=== PATIENT | female | born 1960 | race Caucasian/White ===

== ENCOUNTER 2018-08-19 14:57 | Emergency (ER) | payer OTHER ==
[2018-08-19 15:10] VITALS: BP 122/80
[2018-08-19] MEDS ORDERED: Sodium Chloride 0.9% 10 ML Syringe FLUSH PRN (15:43)
[2018-08-19] MEDS ORDERED: LORazepam 2 MG/ML SDV IVPUSH ONE ×2 (15:43→16:27)
[2018-08-19] MEDS ORDERED: Sodium Chloride 0.9% 1,000 ML IV SCH (15:45)
--- NOTE | 2018-08-19 16:01 | EDM.PDOCBH ---
ED HPI GENERAL MEDICAL PROBLEM - General Chief Complaint: Behavioral/Psych Stated Complaint: SHORT OF BREATH Time Seen by Provider: 08/19/18 15:52 Source of Information: Reports: Patient History Limitations: Reports: No Limitations - History of Present Illness INITIAL COMMENTS - FREE TEXT/NARRATIVE: Patient is a 58-year-old female who states for the past 3 weeks has been modifying her home prescription medications. Patient has a history of anxiety, depression, and chronic back pain. Patient per PCP guidance discontinued Lexapro and started on the patient on Zoloft 50 mg 3 weeks ago. In addition she' s been tapering herself off of the Valium she's been taking for the past 10 years. She's been off of it for the past week. She's been experiencing increased anxiety, agitation, tremors, palpitations, and intermittent sweating since starting the Zoloft. She believes it is related to stopping the Lexapro. She's been in contact with a family member who is a PA and recommended evaluation for serotonin syndrome. I suspect patient is having a panic attack. Patient has missed a dose of the Zoloft yesterday but is taking one third tab daily. She is wanting to taper off this medication as well. Generalized Pain Score (Numeric/FACES): 9 - Related Data Allergies Allergy/AdvReac Type Severity Reaction Status Date / Time amoxicillin Allergy Hives Verified 08/19/18 15:15 ampicillin Allergy Hives Verified 08/19/18 15:15 Influenza Virus Vaccines Allergy Paralysis Verified 08/19/18 15:15 latex Allergy Rash Verified 08/19/18 15:15 Penicillins Allergy Hives Verified 08/19/18 15:15 Zwxrixk-Ctz-Bfh Reductase Allergy Muscle Verified 08/19/18 15:15 Inhibitor Aches Sulfa (Sulfonamide Allergy Rash Verified 08/19/18 15:15 Antibiotics) Home Meds: Home Meds Aspirin [Ecotrin] 81 mg PO DAILY 08/19/18 [History] Calcium Carbonate/Vitamin D3 [Calcium 600 + Vit D 200] 1 tab PO DAILY 08/19/18 [ History] Hydrocodone/Acetaminophen [Hydrocodon-Acetaminophn 10-325] 1 tab PO DAILY [History] LORazepam [Ativan] 1 mg PO BID PRN #6 tablet 08/19/18 [Rx] Multivitamin [Multi-Day Vitamins] 1 tab PO DAILY 08/19/18 [History] Omeprazole Magnesium [Prilosec Otc] 40 mg PO DAILY 08/19/18 [History] Ondansetron [Zofran ODT] 4 mg PO Q6H PRN #8 tab.dis 08/19/18 [Rx] Rosuvastatin [Crestor] 10 mg PO DAILY 08/19/18 [History] Past Medical History Other HEENT History: retinal tear 2017 INTERLACER History: Reports: - Past Surgical History Cardiovascular Surgical History: Reports: Coronary Artery Bypass Social & Family History - Tobacco Use Smoking Status *Q: Current Some Day Smoker Years of Tobacco use: 10 Packs/Tins Daily: 0.2 - Caffeine Use Caffeine Use: Reports: None - Recreational Drug Use Recreational Drug Use: No ED ROS GENERAL - Review of Systems Review Of Systems: See Below Constitutional: Reports: Malaise, Fatigue, Decreased Appetite. Denies: Fever HEENT: Reports: No Symptoms Respiratory: Reports: No Symptoms Cardiovascular: Reports: No Symptoms GI/Abdominal: Reports: Decreased Appetite, Nausea. Denies: Abdominal Pain, Vomiting : Reports: No Symptoms Musculoskeletal: Reports: Muscle Pain Skin: Reports: No Symptoms Neurological: Reports: Dizziness, Tremors. Denies: Headache, Syncope, Trouble Speaking, Difficulty Walking, Change in Speech Psychiatric: Reports: Agitation, Anxiety. Denies: Cravings, Depression, Hallucinations, Homicidal Ideation, Mood Lability, Suicidal Ideation ED EXAM, BEHAVIORAL HEALTH - Physical Exam Exam: See Below Exam Limited By: No Limitations General Appearance: Alert, WD/WN, Anxious Eye Exam: Bilateral Eye: EOMI, Nystagmus (none noted), PERRL, Vision Changes ( blurred vision) Ears: Normal External Exam, Normal Canal, Hearing Grossly Normal, Normal TMs Nose: Normal Inspection Throat/Mouth: Normal Inspection, Normal Voice, No Airway Compromise, Other (dry mouth) Head: Atraumatic, Normocephalic Neck: Normal Inspection, Supple, Non-Tender, Full Range of Motion Respiratory/Chest: No Respiratory Distress, Lungs Clear, Normal Breath Sounds, No Accessory Muscle Use, Chest Non-Tender Cardiovascular: Normal Peripheral Pulses, Regular Rate, Rhythm, No Murmur GI/Abdominal: Normal Bowel Sounds, Soft, Non-Tender, No Organomegaly, No Distention Back Exam: Normal Inspection. No: CVA Tenderness (L), CVA Tenderness (R) Extremities: Normal Inspection, Normal Range of Motion, Non-Tender, No Pedal Edema, Normal Capillary Refill Neurological: Alert, CN II-XII Intact, Normal Gait, No Motor/Sensory Deficits, Oriented x 3, Other (hyperreflexia with no induced clonus. No facial droop, slurred speech, tongue deviation. No weakness discrepancy as to the upper extremities.). No: Normal Reflexes Psychiatric: Alert, Restless, Tearful, Other (anxious) Skin Exam: Warm, Dry, Intact, Normal color COURSE, BEHAVIORAL HEALTH COMP - Course Vital Signs: Last Vital Signs Temp 97.4 F 08/19/18 15:02 Pulse 94 08/19/18 15:02 Resp 14 08/19/18 15:02 BP 122/80 08/19/18 15:02 Pulse Ox 100 08/19/18 15:02 Orders, Labs, Meds: Active Orders 24 hr Category Date Time Status EKG 12 Lead [EKG Documentation Completion] [RC] STAT Care 08/19/18 15:42 Active Peripheral IV Care [RC] . DIRECTED Care 08/19/18 15:43 Active Peripheral IV Insertion Adult [OM.PC] Routine Oth 08/19/18 15:43 Ordered Laboratory Tests 08/19/18 08/19/18 08/19/18 Range/Units 15:15 15:55 15:55 WBC 7.04 (3.98-10.04) K/mm3 RBC 5.32 H (3.98-5.22) M/mm3 Hgb 15.1 (11.2-15.7) gm/L Hct 45.0 H (34.1-44.9) % MCV 84.6 (79.4-94.8) fl MCH 28.4 (25.6-32.2) pg MCHC 33.6 (32.2-35.5) g/dl RDW Std Deviation 43.8 (36.4-46.3) fL Plt Count 286 (182-369) K/mm3 MPV 10.0 (9.4-12.3) fl Neutrophils % (Manual) 67 H (40-60) % Band Neutrophils % 2 (0-10) % Lymphocytes % (Manual) 29 (20-40) % Atypical Lymphs % 0 % Monocytes % (Manual) 2 (2-10) % Eosinophils % (Manual) 0 L (0.7-5.8) % Basophils % (Manual) 0 L (0.1-1.2) Platelet Estimate Adequate RBC Morph Comment Normal Sodium 140 (136-145) mEq/L Potassium 3.4 L (3.5-5.1) mEq/L Chloride 106 (98-107) mEq/L Carbon Dioxide 22 (21-32) mEq/L Anion Gap 15.4 H (5-15) BUN 14 (7-18) mg/dL Creatinine 0.7 (0.55-1.02) mg/dL Est Cr Clr Drug Dosing 67.72 mL/min Estimated GFR (MDRD) > 60 (>60) mL/min BUN/Creatinine Ratio 20.0 H (14-18) Glucose 89 (74-106) mg/dL Calcium 10.0 (8.5-10.1) mg/dL Total Bilirubin 0.6 (0.2-1.0) mg/dL AST 23 (15-37) U/L ALT 33 (14-59) U/L Alkaline Phosphatase 85 (46-116) U/L Creatine Kinase 80 (26-192) U/L Troponin I < 0.017 (0.00-0.056) ng/mL Total Protein 7.9 (6.4-8.2) g/dl Albumin 4.2 (3.4-5.0) g/dl Globulin 3.7 gm/dL Albumin/Globulin Ratio 1.1 (1-2) TSH 3rd Generation 2.288 (0.358-3.74) uIU/mL Urine Opiates Screen Presumptive positive H (VAQUSU=398) Ur Buprenorphine Scrn Negative (CUTOFF=10) Ur Oxycodone Screen Negative (DXB8LW=238) Urine Methadone Screen Negative (HTYPRT=074) Ur Propoxyphene Screen Negative (ZELDHQ=007) Ur Barbiturates Screen Negative (MCNGDI=370) Ur Tricyclics Screen Negative (WEVPZS=890) Ur Phencyclidine Scrn Negative (CUTOFF=25) Ur Amphetamine Screen Negative (DHKNOS=340) U Methamphetamines Scrn Negative (YFOIJG=363) U Benzodiazepines Scrn Presumptive positive H (RZAHAL=301) U Cocaine Metab Screen Negative (UKPQDU=119) U Marijuana (THC) Screen Presumptive positive H (CUTOFF=50) Ethyl Alcohol 0.00 (0.00) gm% Medications Discontinued Medications Generic Name Dose Route Start Last Admin Trade Name Maikolq PRN Reason Stop Dose Admin Sodium Chloride 1,000 mls @ 250 mls/hr 08/19/18 15:45 08/19/18 15:58 Normal Saline IV 250 mls/hr ASDIRECTED LINDA Administration Lorazepam 1 mg 08/19/18 15:43 08/19/18 15:58 Ativan IVPUSH 08/19/18 15:44 1 mg ONETIME ONE Administration Lorazepam 1 mg 08/19/18 16:27 08/19/18 16:34 Ativan IVPUSH 08/19/18 16:28 1 mg ONETIME ONE Administration Sodium Chloride 10 ml 08/19/18 15:43 08/19/18 15:58 Saline Flush FLUSH 10 ml ASDIRECTED PRN Administration Keep Vein Open Re-Assessment/Re-Exam: Patient is a 58-year-old female who states for the past 3 weeks has been modifying her home prescription medications. Patient per PCP guidance discontinued Lexapro and started on the patient on Zoloft 50 mg 3 weeks ago. In addition she's been tapering herself off of the Valium she's been taking for the past 10 years. She's been off of it for the past week. She's been experiencing anxiety, agitation, tremors, palpitations, and intermittent sweating since starting the Zoloft. She believes it is related to stopping the Lexapro. She's been in contact with a family member who is a PA and recommended evaluation for serotonin syndrome. I suspect patient is having a panic attack. Patient has missed a dose of the Zoloft yesterday but is taking one third tab daily. She is wanting to taper off this medication as well. Per the Jevon criteria for serotonin syndrome. Patient requires one of the following: Spontaneous clonus, and use clonus and agitation or diaphoresis, ocular clonus and agitation or diaphoresis, tremor and hyperreflexia, however 20 , heart temperature above 30C and ocular clonus or inducible clonus. Patient has hyperreflexia and tremors. Gregory Jevon criteria she is experiencing serotonin syndrome. EKG sinus rhythm at a rate of 81. No acute ST changes noted. IV has been established with NS and Ativan 1 mg IVP. Initial labs and studies will include: CBC, CK, CMP, urine drug screen, troponin , TSH, serum EtOH, and twelve-lead. 1622 Reassessment, patient is feeling better. States tremors have improved. Labs reviewed: CBC essentially normal. Chemistry panel revealed slightly low potassium. CK normal. Troponin normal. TSH normal. Drug tox positive for opiates , benzos, and marijuana. Patient admits to utilizing marijuana. 1718 Reassessment, patient states she's feeling quite better after administration of the above medications. I will discharge patient home with prescription for Ativan. She is instructed to continue taking half dose of Zoloft until evaluated by PCP this week. She was advised to call and make an appointment. Patient had no questions or concerns and agreed with plan. Return precautions discussed with the patient. Departure - Departure Time of Disposition: 17:31 Disposition: Home, Self-Care 01 Condition: Good Clinical Impression: Serotonin withdrawal syndrome without complication - Discharge Information Prescriptions: LORazepam [Ativan] 1 mg PO BID PRN #6 tablet PRN Reason: Anxiety Ondansetron [Zofran ODT] 4 mg PO Q6H PRN #8 tab.dis PRN Reason: Nausea Referrals: PCP,None [Ordering Only Provider] - Forms: ED Department Discharge Additional Instructions: Take the Ativan 1 mg twice a day as prescribed. Call and make an appointment to see your primary care provider this week for reevaluation. Continue taking the Zoloft half of the regular dose until evaluated by PCP. Refrain from marijuana use. Do not drive today since receiving a sedative medication while in the ED. Push the fluids. Eat a balanced diet. Please return back to the ED if you develop any new or worsening symptoms. Take the Zofran as prescribed for nausea vomiting. - My Orders Last 24 Hours: My Active Orders 08/19/18 15:42 EKG 12 Lead [EKG Documentation Completion] [RC] STAT 08/19/18 15:43 Peripheral IV Care [RC] . DIRECTED Peripheral IV Insertion Adult [OM.PC] Routine - Assessment/Plan Last 24 Hours: My Active Orders 08/19/18 15:42 EKG 12 Lead [EKG Documentation Completion] [RC] STAT 08/19/18 15:43 Peripheral IV Care [RC] . DIRECTED Peripheral IV Insertion Adult [OM.PC] Routine
== END 2018-08-19 18:55 | disposition home or self-care (01) ==
LOC: JD.ED 14:57
DX: F19.939 Other psychoactive substance use, unspecified with withdrawal, unspecified (principal); F17.210 Nicotine dependence, cigarettes, uncomplicated; Z88.1 Allergy status to other antibiotic agents; Z88.0 Allergy status to penicillin; Z91.040 Latex allergy status; Z88.2 Allergy status to sulfonamides
CPT/HCPCS: 36415; 80053; 80306; 82550; 84443; 84484; 85007; 85027; 93005; 96361; 96374; 96376; 99285; G0480; J2060; J7040

== ENCOUNTER 2018-09-03 18:30 | Emergency (ER) | payer OTHER ==
[2018-09-03 18:49] VITALS: BP 124/68
[2018-09-03] MEDS ORDERED: diazePAM 5 MG/ML MDV IV ONE (19:44)
[2018-09-03] MEDS ORDERED: Sodium Chloride 0.9% 10 ML Syringe FLUSH PRN (19:44)
[2018-09-03] MEDS ORDERED: Sodium Chloride 0.9% 1,000 ML IV ONE (19:44)
[2018-09-03] MEDS ORDERED: Ketorolac 30 MG/ML SDV IVPUSH ONE (19:44)
[2018-09-03] MEDS ORDERED: Promethazine 12.5 MG in Sodium Chloride 0.9% 50 ML IV ONE (19:44)
[2018-09-03] MEDS ORDERED: diazePAM 5 MG/ML-2ml Syringe ONE (19:52)
--- NOTE | 2018-09-03 20:35 | EDM.PDOC ---
ED HPI GENERAL MEDICAL PROBLEM - General Chief Complaint: Behavioral/Psych Stated Complaint: PANIC ATTACH Time Seen by Provider: 09/03/18 19:15 Source of Information: Reports: Patient History Limitations: Reports: No Limitations - History of Present Illness INITIAL COMMENTS - FREE TEXT/NARRATIVE: 58-year-old female presents for evaluation and treatment of a "panic attack ". Patient reports today that she woke up around 1400. She reports feeling very anxious and diaphoretic. Over the course the afternoon and evening her symptoms have gotten worse. She is currently complaining of a headache, myalgias, dizziness, nausea, diaphoresis and anxiety. She did take a Xanax, 0.25 mg, around 1730 tonight, no improvement. Reports she has had a decreased appeptite lately and estimates she has lost about 20lbs over the last 2 weeks. Review patient's records shows that she was seen in the ED on August 18. She states that she has had symptoms since being seen. Patient reports that she was was previously on Lexapro 20 mg daily for about 9 years. Around the time she was seen in the ED she abruptly discontinued the lexapro as she no longer wants to be on this medication. Her primary care switch her to Zoloft 50mg but she states that she did not take this. She has also been on Valium 10 mg twice a day for chronic back pain and muscle spasms. She states that over the course of 3 weeks she was able to taper herself off of the valvium. She states that she was diagnosed with serotonin syndrome in the ED. She feels that her symptoms today are similar when she was seen in the ED several weeks ago. Review the patient's records from her ER visit show that she has a complete workup done including labs and an ECG. Her symptoms improved with Ativan and she was sent home with a prescription for Ativan instructions to take half of the 50 mg tablet of Zoloft. Patient was diagnosed with withdrawal of SSRI rather than serotonin syndrome. She confesses that she is not been taking the Zoloft. She is not taking any SSRI at least 2 weeks. Patient reports pablito ativan caused her to have hives and therefore has not been taking the ativan. Bilateral Back Pain Score (Numeric/FACES): 10 - Related Data Allergies Allergy/AdvReac Type Severity Reaction Status Date / Time amoxicillin Allergy Hives Verified 09/03/18 18:42 ampicillin Allergy Hives Verified 09/03/18 18:42 Influenza Virus Vaccines Allergy Paralysis Verified 09/03/18 18:42 latex Allergy Rash Verified 09/03/18 18:42 lorazepam [From Ativan] Allergy Hives Verified 09/03/18 18:42 Penicillins Allergy Hives Verified 09/03/18 18:42 Msknazx-Pnu-Wzs Reductase Allergy Muscle Verified 09/03/18 18:42 Inhibitor Aches Sulfa (Sulfonamide Allergy Rash Verified 09/03/18 18:42 Antibiotics) Home Meds: Home Meds Aspirin [Ecotrin] 81 mg PO DAILY 08/19/18 [History] Calcium Carbonate/Vitamin D3 [Calcium 600 + Vit D 200] 1 tab PO DAILY 08/19/18 [ History] Hydrocodone/Acetaminophen [Hydrocodon-Acetaminophn 10-325] 1 tab PO DAILY [History] Multivitamin [Multi-Day Vitamins] 1 tab PO DAILY 08/19/18 [History] Omeprazole Magnesium [Prilosec Otc] 40 mg PO DAILY 08/19/18 [History] Rosuvastatin [Crestor] 10 mg PO DAILY 08/19/18 [History] Diazepam [Valium] 5 mg PO BID PRN #20 tablet 09/03/18 [Rx] Escitalopram Oxalate [Lexapro] 5 mg PO DAILY #60 tablet 09/03/18 [Rx] Past Medical History Other HEENT History: retinal tear 2018 Gastrointestinal History: Reports: GERD QUALITY AUDIT REPRESENTATIVE History: Reports: , Other (See Below) Other QUALITY AUDIT REPRESENTATIVE History: cervix removed Psychiatric History: Reports: Other (See Below) Other Psychiatric History: serotonin syndrome - Infectious Disease History Infectious Disease History: Reports: Chicken Pox, Measles - Past Surgical History Cardiovascular Surgical History: Reports: Coronary Artery Bypass Musculoskeletal Surgical History: Reports: Other (See Below) Other Musculoskeletal Surgeries/Procedures:: lumbar fusion Social & Family History - Family History Family Medical History: Noncontributory - Tobacco Use Smoking Status *Q: Current Every Day Smoker Years of Tobacco use: 40 Packs/Tins Daily: 0.2 - Caffeine Use Caffeine Use: Reports: None - Recreational Drug Use Recreational Drug Use: No ED ROS GENERAL - Review of Systems Review Of Systems: See Below Constitutional: Reports: Malaise, Diaphoresis, Decreased Appetite, Weight Loss Respiratory: Denies: Shortness of Breath Cardiovascular: Denies: Chest Pain GI/Abdominal: Reports: Nausea. Denies: Vomiting Musculoskeletal: Reports: Muscle Pain Neurological: Reports: Headache Psychiatric: Reports: Anxiety ED EXAM, GENERAL - Physical Exam Exam: See Below Exam Limited By: No Limitations General Appearance: Alert, WD/WN, Anxious, Mild Distress Eye Exam: Bilateral Eye: EOMI, Normal Inspection, PERRL Ears: Normal External Exam, Normal Canal, Hearing Grossly Normal, Normal TMs Nose: Normal Inspection Throat/Mouth: Normal Inspection, Normal Lips, Normal Voice, No Airway Compromise , Other (dry mucus membranes) Respiratory/Chest: No Respiratory Distress, Lungs Clear, Normal Breath Sounds Cardiovascular: Normal Peripheral Pulses, Regular Rate, Rhythm, No Murmur Peripheral Pulses: 2+: Radial (L), Radial (R) Neurological: Alert, Oriented, Normal Cognition, Normal Reflexes, Other ( patallar, achilles, bracialradialis reflexes are 4+ bilaterally; no spontaneous or induced clonus) Psychiatric: Anxious Skin Exam: Warm, Dry, Normal Color Course - Vital Signs Last Recorded V/S: Last Vital Signs Temp Pulse 101 H 09/03/18 18:36 Resp 25 H 09/03/18 18:36 BP 124/68 09/03/18 18:36 Pulse Ox 98 09/03/18 18:36 - Orders/Labs/Meds Orders: Active Orders 24 hr Category Date Time Status Peripheral IV Care [RC] . DIRECTED Care 09/03/18 19:47 Active Peripheral IV Insertion Adult [OM.PC] Routine Oth 09/03/18 19:43 Ordered Labs: Laboratory Tests 09/03/18 Range/Units 19:55 Free T4 1.19 (0.76-1.46) ng/dL TSH 3rd Generation 2.059 (0.358-3.74) uIU/mL Meds: Medications Discontinued Medications Generic Name Dose Route Start Last Admin Trade Name Freq PRN Reason Stop Dose Admin Diazepam 5 mg 09/03/18 19:44 09/03/18 20:01 Valium IV 09/03/18 19:45 Not Given ONETIME ONE Diazepam Confirm 09/03/18 19:52 09/03/18 20:00 Valium Administered 09/03/18 19:53 10 mg Dose Administration 10 mg .ROUTE .STK-MED ONE Promethazine HCl 12.5 mg/ 50.5 mls @ 100 mls/hr 09/03/18 19:44 09/03/18 20:09 Sodium Chloride IV 09/03/18 20:14 100 mls/hr ONETIME ONE Administration Sodium Chloride 1,000 mls @ 999 mls/hr 09/03/18 19:44 09/03/18 19:58 Normal Saline IV 09/03/18 20:44 999 mls/hr ONETIME ONE Administration Ketorolac Tromethamine 30 mg 09/03/18 19:44 09/03/18 20:04 Toradol IVPUSH 09/03/18 19:45 30 mg ONETIME ONE Administration Sodium Chloride 10 ml 09/03/18 19:44 09/03/18 20:12 Saline Flush FLUSH 10 ml ASDIRECTED PRN Administration Keep Vein Open - Re-Assessments/Exams Free Text/Narrative Re-Assessment/Exam: 09/03/18 20:51 I reviewed the patient's records from her recent ED visit. Her symptoms are consistent with SSRI withdrawal and not serotonin syndrome. She does not have any clonus, she is hyperreflexive but this appears to be more her normal, no hyperthermia, hypertonia or tremors. At this point she's been off SSRIs for several weeks. I discussed with the patient feel this is still withdrawal from her SSRI. Given that she has been off SSRIs for about 2 weeks the Lexapro is completely out of her system, half life approximately 30 hours. We discussed further management. She could attempt to manage the symptoms with [id number] medications or we can put her back on Lexapro. At this point I am recommending starting her at 10 mg the usual starting dose and doing a very slow taper off the medication. I' m recommending she use the Valium she has at home to help manage the anxiety and panic attacks in the meantime. Recommend taking only 5 mg as needed. She should also use Zofran she has at home, Tylenol and Motrin to help manage the additional symptoms. Recommending close follow-up in the clinic. Checked on patient. She is feeling greatly improved after some medication. We do not have any Lexapro here in the ED but she does some home. I will puit her on a long michael off the medication with close follow-up in the clinci. The patinet is agree able to this plan. Discharge instructions as documented. Departure - Departure Time of Disposition: 21:20 Disposition: Home, Self-Care 01 Condition: Fair Clinical Impression: Serotonin withdrawal syndrome without complication - Discharge Information *PRESCRIPTION DRUG MONITORING PROGRAM REVIEWED*: Yes *COPY OF PRESCRIPTION DRUG MONITORING REPORT IN PATIENT IVAN: No Prescriptions: Diazepam [Valium] 5 mg PO BID PRN #20 tablet PRN Reason: Anxiety Escitalopram Oxalate [Lexapro] 5 mg PO DAILY #60 tablet Instructions: Sedative, Hypnotic, or Anxiolytic Use Disorder Referrals: PCP,None [Ordering Only Provider] - Zaynab Turner PA-C [Primary Care Provider] - Forms: ED Department Discharge Additional Instructions: For your information on abrupt SSRI discontinuation: Abruptly stopping or rapidly tapering antidepressants often causes discontinuation symptoms, including agitation, anxiety, chills, diaphoresis, dizziness, dysphoria, fatigue, headache, insomnia, irritability, myalgias, nausea, paresthesias, rhinorrhea, and tremor. Factors that appear to be associated with more frequent and severe discontinuation symptoms include shorter antidepressant elimination half-life ( eg, <24 hours), higher antidepressant doses, and longer duration of treatment at therapeutic doses (eg, =5 to 8 weeks). Mild discontinuation symptoms that occur are managed with reassurance. If moderate to severe discontinuation symptoms occur during a two to four week taper, clinicians can decrease the pace and taper the drugs over 6 to 12 weeks. If disturbing symptoms arise after the drug is stopped, the antidepressant is restarted at the dose at which there were no symptoms, and the taper recommences at a pace slower than the initial taper. Recommend valium 5g PO bid prn anxiety and panic attacks. OTC tylenol or motrin as needed for headaches and discomfort. Make sure you are drinking plenty of fluids. Michael the lexapro as prescribed. 10mg PO x 3 weeks, 7.5mg PO x 3 weeks, 5 mg PO x 3 weeks, then 2.5mg PO x 3 weeks. If you experience symptoms after stepping down the medication you may take it every other day. For example, the week you decrease the medication from 10mg to 7.5 mg and you experience symptoms you may take 10mg PO one day then alternate to 7.5mg the next day ( 10mg Monday, 7.5mg Monday, 10mg Monday, 7.5mg Thursday.... x 1 week). the entire michael off the medication will take about 12 weeks to complete. Follow-up with your PCP within 2 weeks for a recheck of your symptoms . Please return to the ER should your symptoms change or worsen. - My Orders Last 24 Hours: My Active Orders 09/03/18 19:43 Peripheral IV Insertion Adult [OM.PC] Routine 09/03/18 19:47 Peripheral IV Care [RC] . DIRECTED - Assessment/Plan Last 24 Hours: My Active Orders 09/03/18 19:43 Peripheral IV Insertion Adult [OM.PC] Routine 09/03/18 19:47 Peripheral IV Care [RC] . DIRECTED
== END 2018-09-03 22:07 | disposition home or self-care (01) ==
LOC: JD.ED 18:30
DX: F19.939 Other psychoactive substance use, unspecified with withdrawal, unspecified (principal); F17.210 Nicotine dependence, cigarettes, uncomplicated; Z88.8 Allergy status to other drugs, medicaments and biological substances; Z91.040 Latex allergy status; Z88.7 Allergy status to serum and vaccine; Z88.1 Allergy status to other antibiotic agents; Z88.0 Allergy status to penicillin; Z79.899 Other long term (current) drug therapy; Z79.82 Long term (current) use of aspirin
CPT/HCPCS: 36415; 84439; 84443; 96361; 96365; 96375; 99283; J1885; J2550; J3360; J7040; J7050

== ENCOUNTER 2022-07-27 11:03 | Emergency (ER) | payer BC, OTHER ==
[2022-07-27] MEDS ORDERED: Acetaminophen/HYDROcodone 325-5 MG Tab PO ONE (12:59)
[2022-07-27] MEDS ORDERED: Diazepam 5 MG Tab PO ONE (14:13)
[2022-07-27 16:41] VITALS: BP 129/68; PULSE 89
== END 2022-07-27 16:41 | disposition home or self-care (01) ==
LOC: JD.ED 11:03
DX: S20.211A Contusion of right front wall of thorax, initial encounter (principal); S70.11XA Contusion of right thigh, initial encounter; Z88.0 Allergy status to penicillin; Z88.7 Allergy status to serum and vaccine; Z91.040 Latex allergy status; Z88.6 Allergy status to analgesic agent; Z88.2 Allergy status to sulfonamides; Z79.82 Long term (current) use of aspirin; Z79.899 Other long term (current) drug therapy; W10.9XXA Fall (on) (from) unspecified stairs and steps, initial encounter
CPT/HCPCS: 70450; 70551; 71250; 73552; 74176; 99284; A9270